=== PATIENT | female | born 1970 | race Caucasian/White ===

== ENCOUNTER 2018-01-01 13:06 | Emergency (ER) | payer BC ==
[~2018-01-01] VITALS: Ht 172.7 cm; Wt 66.7 kg
[~2018-01-01 13:06] MED LIST: GUAISOL PO; PHEN30CA PO; POLY3.5O EACH EYE; [UNRECOGNIZED DRUG - OTHER]
[2018-01-01 13:20] VITALS: BP 119/85; PULSE 100; RESP 16; TEMP 98.9; O2SAT 95
[2018-01-01] MEDS ORDERED: FLUT1SPR5 EACH NARE (13:32)
[2018-01-01] MEDS ORDERED: ACETAMINOPHEN/HYDROcodone 325 MG/5 MG TAB PO ONE (14:00)
--- NOTE | 2018-01-01 14:35 | RADRPT ---
EXAM DATE/TIME: 01/01/2018 14:05 [facility] COMPARISON: No previous studies available for comparison. INDICATIONS : Left hand pain, fell last pm MEDICAL HISTORY : None. SURGICAL HISTORY : None. ENCOUNTER: Initial ACUITY: 1 day PAIN SCORE: 7/10 LOCATION: Left hand FINDINGS: Three view examination of the left hand demonstrates no soft tissue swelling, dislocation, or fractur e. The carpal bones appear intact. The interphalangeal and metacarpophalangeal joints are intact. Bony mineralization is normal. CONCLUSION: 1. No acute findings. Terrance Adams MD on January 01, 2018 at 14:31 Board Certified Radiologist. This report was verified electronically.
--- NOTE | 2018-01-01 14:37 | RADRPT ---
EXAM DATE/TIME: 01/01/2018 14:05 [facility] COMPARISON: No previous studies available for comparison. INDICATIONS : Fell last pm, has left elbow pain MEDICAL HISTORY : None. SURGICAL HISTORY : None. ENCOUNTER: Initial ACUITY: 1 day PAIN SCORE: 7/10 LOCATION: Left elbow FINDINGS: On the lateral view there is a relatively nondisplaced avulsion fracture of the coronoid process of t he proximal ulna. Positive elbow joint effusion. No other fractures are seen. CONCLUSION: 1. Avulsion fracture at the coronoid process of the proximal ulna with elbow joint effusion. Terrance Adams MD on January 01, 2018 at 14:34 Board Certified Radiologist. This report was verified electronically.
--- NOTE | 2018-01-01 14:39 | RADRPT ---
EXAM DATE/TIME: 01/01/2018 14:05 [facility] COMPARISON: No previous studies available for comparison. INDICATIONS : Fell last pm, has pain left forearm MEDICAL HISTORY : None. SURGICAL HISTORY : None. ENCOUNTER: Initial ACUITY: 1 day PAIN SCORE: 7/10 LOCATION: Left Forearm FINDINGS: There is a small avulsion fracture of the coronoid process of the proximal ulna better seen on elbow radiograph. No other forearm fractures are identified. CONCLUSION: 1. Small avulsion fracture of the proximal ulna as above. Terrance Adams MD on January 01, 2018 at 14:36 Board Certified Radiologist. This report was verified electronically.
--- NOTE | 2018-01-01 14:45 | PD ---
HPI Chief Complaint: Fall Time Seen by Provider: 13:56 Travel History International Travel<30 days: No Contact w/Intl Traveler<30days: No Traveled to known affect area: No History of Present Illness HPI 47-year-old female complains of left elbow pain with paresthesias in the ring and little finger on the left side. Pain onset was sudden yesterday when she slipped on wet [place] and landed on the buttocks and L elbow. Pain worsened over the night paresthesias started as well. No weakness involving the left hand. No other injury to report. PFSH Past Medical History High Cholesterol: Yes Diminished Hearing: No Diverticulitis: Yes Tetanus Vaccination: Unknown ?: Not Tubal Ligation: Yes (ABLATION) Past Surgical History Gynecologic Surgery: Yes (ABLATION) Social History Alcohol Use: Yes (4-5 BEERS/WINE A DAY) Tobacco Use: No Substance Use: No Allergies-Medications (Allergen,Severity, Reaction): Coded Allergies: Sulfa (Sulfonamide Antibiotics) (Unverified Allergy, Unknown, 01/01/18) Reported Meds & Prescriptions Reported Meds & Active Scripts Active Ibuprofen 600 Mg Tab 600 Mg PO Q8HR PRN Percocet (Oxycodone-Acetaminophen) 5-325 mg Tab 1-2 Tab PO Q6H PRN Reported Flonase Nasal Wallace (Fluticasone Nasal Wallace) 50 Mcg/Act Wallace 50 Mcg EACH NARE BID Review of Systems Eyes: No: Photophobia HENT: No: Lightheadedness Cardiovascular: No: Tachycardia Gastrointestinal: No: Diarrhea Physical Exam Narrative GENERAL: 47-year-old female pleasant well-nourished well-developed no acute distress Vital Signs Date Time Temp Pulse Resp B/P (MAP) Pulse Ox O2 Delivery O2 Flow Rate FiO2 01/01/18 13:20 98.9 100 16 119/85 (96) 95 SKIN: Warm and dry. HEAD: Normocephalic. EYES: No scleral icterus. No injection or drainage. NECK: Supple, trachea midline. No JVD or lymphadenopathy. CARDIOVASCULAR: Regular rate and rhythm without murmurs, gallops, or rubs. RESPIRATORY: Breath sounds equal bilaterally. No accessory muscle use. GASTROINTESTINAL: Abdomen soft, non-tender, nondistended. MUSCULOSKELETAL: No cyanosis, or edema. Sensation is intact in the radial ulnar and median nerve distributions. The patient has 2+ radial artery pulse and 2+ ulnar artery pulse. BACK: Nontender without obvious deformity. No CVA tenderness. Data Data Last Documented VS Vital Signs Date Time Temp Pulse Resp B/P (MAP) Pulse Ox O2 Delivery O2 Flow Rate FiO2 01/01/18 13:20 98.9 100 16 119/85 (96) 95 Orders Orders Elbow, Complete (4 Vws) (01/01/18 13:56) Forearm (2vws) (01/01/18 13:56) Splint Or Brace Apply/Monitor (01/01/18 13:56) Hand, Complete ([id number]) (01/01/18 ) Acetamin-Hydrocod 325-5 Mg ([place] 5-325 (01/01/18 14:00) ^ Sling (01/01/18 14:42) Ed Discharge Order (01/01/18 14:43) MDM Medical Decision Making Medical Screen Exam Complete: Yes Emergency Medical Condition: Yes Differential Diagnosis Ulnar contusion, fracture, dislocation Narrative Course Last Impressions Radius/Ulna X-Ray 01/01/18 1356 Signed Impressions: Service Date/Time: Monday, January 01, 2018 14:05 - CONCLUSION: 1. Small avulsion fracture of the proximal ulna as above. Terrance Adams MD Elbow X-Ray 01/01/18 1356 Signed Impressions: Service Date/Time: Monday, January 01, 2018 14:05 - CONCLUSION: 1. Avulsion fracture at the coronoid process of the proximal ulna with elbow joint effusion. Terrance Adams MD Hand X-Ray 01/01/18 0000 Signed Impressions: Service Date/Time: Monday, January 01, 2018 14:05 - CONCLUSION: 1. No acute findings. Terrance Adams MD Sugar tong splint. Sling. Follow-up with Dr. Leonardo of orthopedics. Diagnosis Primary Impression: Fracture, ulna, proximal Qualified Codes: S52.002A - Unspecified fracture of upper end of left ulna, initial encounter for closed fracture Referrals: Trent Leonardo MD call for appointment Med/Other Pt SpecificInfo: Prescription(s) given Scripts Ibuprofen (Ibuprofen) 600 Mg Tab 600 MG PO Q8HR Y for PAIN SCALE 6 TO 10, #15 TAB 0 Refills Prov: Erick Park MD 01/01/18 Oxycodone-Acetaminophen (Percocet) 5-325 mg Tab 1-2 TAB PO Q6H Y for PAIN SCALE 6 TO 10, #12 TAB 0 Refills Prov: Erick Park MD 01/01/18 Disposition: 01 DISCHARGE HOME Condition: Stable Erick Park MD Jan 01, 2018 14:45
[2018-01-01] MEDS ORDERED: IBUP-232 PO (14:59)
[2018-01-01] MEDS ORDERED: PERC5TAB12 PO (14:59)
== END 2018-01-01 15:39 | disposition home or self-care (01) ==
LOC: PHEFT 13:06
DX: S52.002A Unspecified fracture of upper end of left ulna, initial encounter for closed fracture (principal); E78.00 Pure hypercholesterolemia, unspecified; W01.0XXA Fall on same level from slipping, tripping and stumbling without subsequent striking against object, initial encounter; Z87.19 Personal history of other diseases of the digestive system
CPT/HCPCS: 29125; 73080; 73090; 73130